=== PATIENT | male | born 1960 | race Caucasian/White ===

== ENCOUNTER 2019-08-23 08:02 | Emergency (ER) | payer OTHER ==
[~2019-08-23] VITALS: Ht 182.9 cm; Wt 118.2 kg
--- NOTE | 2019-08-23 08:20 | ED Lower Extremity ---
General Chief Complaint: Lower Extremity Stated Complaint: RT LEG PAIN Source: patient, family Exam Limitations: no limitations History of Present Illness Date Seen by Provider: Aug 23, 2019 Time Seen by Provider: 08:15 Initial Comments Patient came into the emergency room with complaint of having pain in the right thigh. Since her last Friday he slipped in the ice and fell and landed on his right side. Patient said he thought he might have pulled a muscle on the rt thigh and it was swollen next day and was seen in the local clinic and was advised to keep the leg elevated and Jose wrap to the thigh and ice. Patient has been taking Tylenol for pain and he said since last night his pain got worse and was not able to tolerate the pain so he came to the emergency room. On exam patient's right thigh is swollen significantly along with ecchymosis and tightness of the anterior thigh compartment. Patient also has ecchymosis and hematoma on the posterior compartment. He denies having any tingling or numbness. He does have good pedal pulse. Patient said he was able to walk after the fall until yesterday when his pain got severe and has been using crutches. He does have artificial valve and he was on Coumadin. Onset: last week Severity: moderate Pain/Injury Location: right thigh Method of Injury: fell, twisted Modifying Factors: Improves With Pain Medication Allergies and Home Medications Allergies Coded Allergies: Sulfa (Sulfonamide Antibiotics) (Verified Allergy, Unknown, 08/23/19) penicillin G (Verified Allergy, Unknown, 08/23/19) Review of Systems Constitutional: no symptoms reported, see HPI; No fever All Other Systems Reviewed Negative Unless Noted: Yes Past Ircabvt-Jvrcpv-Ihemjq Hx Patient Social History Recent Foreign Travel: No Physical Exam Vital Signs Vital Signs - First Documented 08/23/19 08:05 Temp 36.2 Pulse 94 Resp 18 B/P (MAP) 171/96 (121) Pulse Ox 98 O2 Delivery Room Air Capillary Refill : Height, Weight, BMI Height: '" Weight: lbs. oz. kg; BMI Method: General Appearance: moderate distress HEENT: normal ENT inspection Neck: non-tender, supple Cardiovascular: normal peripheral pulses, regular rate, rhythm Respiratory: chest non-tender, lungs clear, normal breath sounds, no respiratory distress Gastrointestinal: normal bowel sounds, non tender, soft, no organomegaly, no pulsatile mass Back: normal inspection Hips: right hip ecchymosis, right hip pain, right hip soft tissue tenderness, right hip swelling Legs: right leg soft tissue tenderness, right leg swelling Knees: right knee pain, right knee swelling Ankles: right ankle swelling Feet: right foot swelling Neurologic/Tendon: normal sensation Neurologic/Psychiatric: 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 Pressure was reading 36. Progress/Results/Core Measures Results/Orders Lab Results Laboratory Tests Test 08/23/19 08:20 Range/Units White Blood Count 14.2 H 4.3-11.0 10^3/uL Red Blood Count 3.97 L 4.35-5.85 10^6/uL Hemoglobin 12.6 L 13.3-17.7 G/DL Hematocrit 36 L 40-54 % Mean Corpuscular Volume 91 80-99 FL Mean Corpuscular Hemoglobin 32 25-34 PG Mean Corpuscular Hemoglobin Concent 35 32-36 G/DL Red Cell Distribution Width 13.2 10.0-14.5 % Platelet Count 291 130-400 10^3/uL Mean Platelet Volume 9.8 7.4-10.4 FL Neutrophils (%) (Auto) 65 42-75 % Lymphocytes (%) (Auto) 24 12-44 % Monocytes (%) (Auto) 8 0-12 % Eosinophils (%) (Auto) 1 0-10 % Basophils (%) (Auto) 1 0-10 % Neutrophils # (Auto) 9.2 H 1.8-7.8 X 10^3 Lymphocytes # (Auto) 3.4 1.0-4.0 X 10^3 Monocytes # (Auto) 1.2 H 0.0-1.0 X 10^3 Eosinophils # (Auto) 0.2 0.0-0.3 10^3/uL Basophils # (Auto) 0.1 0.0-0.1 10^3/uL Neutrophils % (Manual) 60 % Lymphocytes % (Manual) 25 % Monocytes % (Manual) 8 % Eosinophils % (Manual) 2 % Basophils % (Manual) 0 % Band Neutrophils 5 % Blood Morphology Comment NORMAL Prothrombin Time 28.5 H 12.2-14.7 SEC INR Comment 2.5 H 0.8-1.4 Sodium Level 140 135-145 MMOL/L Potassium Level 4.3 3.6-5.0 MMOL/L Chloride Level 105 98-107 MMOL/L Carbon Dioxide Level 19 L 21-32 MMOL/L Anion Gap 16 H 5-14 MMOL/L Blood Urea Nitrogen 10 7-18 MG/DL Creatinine 0.93 0.60-1.30 MG/DL Estimat Glomerular Filtration Rate > 60 BUN/Creatinine Ratio 11 Glucose Level 136 H 70-105 MG/DL Calcium Level 8.8 8.5-10.1 MG/DL My Orders Orders - SHYAM BEE MD Cbc With Automated Diff (08/23/19 08:20) Basic Metabolic Panel (08/23/19 08:20) Protime With Inr (08/23/19 08:20) Fentanyl Injection (Sublimaze Injection (08/23/19 08:30) Orphenadrine Injection (Norflex Injectio (08/23/19 08:30) Femur 2 View Right (08/23/19 08:23) Creatine Kinase (08/23/19 08:20) Manual Differential (08/23/19 08:20) Lidocaine 1% Inj 20 Ml (Xylocaine 1% Inj (08/23/19 09:25) Hydromorphone Injection (Dilaudid Inject (08/23/19 09:26) Hydromorphone Injection (Dilaudid Inject (08/23/19 09:45) Lidocaine 1% Inj 20 Ml (Xylocaine 1% Inj (08/23/19 09:45) Medications Given in ED Current Medications Medications Dose Ordered Sig/Re Route Start Time Stop Time Status Last Admin Dose Admin Fentanyl Citrate 50 mcg ONCE ONCE IVP 08/23/19 08:30 08/23/19 08:31 DC 08/23/19 08:28 50 MCG Hydromorphone HCl 1 mg ONCE ONCE IV 08/23/19 09:45 08/23/19 09:46 DC 08/23/19 09:30 1 MG Lidocaine HCl 20 ml ONCE ONCE INJ 08/23/19 09:45 08/23/19 09:46 DC 08/23/19 09:30 20 ML Orphenadrine Citrate 60 mg ONCE ONCE IVP 08/23/19 08:30 08/23/19 08:31 DC 08/23/19 08:28 60 MG Vital Signs/I&O 08/23/19 08:05 Temp 36.2 Pulse 94 Resp 18 B/P (MAP) 171/96 (121) Pulse Ox 98 O2 Delivery Room Air Progress Progress Note : Time: 09:01 Progress Note Patient's pain is slightly better. Patient exam is consistent with a possible compartment syndrome. We'll get the patient transferred to [facility] to see the orthopedic doctor. Consults #1: Consulting Physician: DANIEL VAUGHN MD Consults Notes Adviced to send to . needs higher level of care. Consults #2: Consulting Physician: Lazaro Consults Notes Called [facility] at 0945 am. awaiting call back.spoke with hot plate press operator. received call from Kostas at transfer center- will accept the patient and accepting physician is . will transfer him to ER and he will see him there. Departure Impression Primary Impression: compartment syndrome of rt thigh Disposition: XFER SHT-TRM HOSP Condition: Stable Transfer Transfer Reason: Exceeds level of care Time Spoke to Accepting Phy: 10:30 Transfer Progress Notes Transfer Time: 10:36 Method of Transfer: EMS Departure-Patient Inst. Decision time for Depature: 10:37 Referrals: CAREN FOX MD (PCP/Family) Primary Care Physician SHYAM BEE MD Aug 23, 2019 08:20
[2019-08-23] MEDS ORDERED: ORPHENADRINE 60 MG/2 ML (NORFLEX) AMP IVP ONE (08:30)
[2019-08-23] MEDS ORDERED: fentaNYL INJECTION 100 MCG/2 ML AMP IVP ONE (08:30)
--- NOTE | 2019-08-23 08:50 | Diagnostic Imaging Report ---
INDICATION: Pain, fall. COMPARISON: None available. TECHNIQUE: 4 radiographs of the right femur dated 08/23/2019. FINDINGS: No acute fracture or dislocation. No destructive osseous process. The right hip joint space is well-maintained. Right femoral head is normal in shape and contour. Mild prepatellar soft tissue swelling. No suspicious radiopaque foreign body. IMPRESSION: No acute osseous abnormality with mild prepatellar soft tissue swelling. Dictated by: Dictated on workstation # [id number]
[2019-08-23 08:55] LABS: INR 2.5 (0.8-1.4); PROTHROMBIN TIME PATIENT 28.5 SEC (12.2-14.7)
[2019-08-23 08:56] LABS: BASOPHILS # (AUTO) 0.1 10^3/uL (0.0-0.1); BASOPHILS % (AUTO) 1 % (0-10); EOSINOPHILS # (AUTO) 0.2 10^3/uL (0.0-0.3); EOSINOPHILS % (AUTO) 1 % (0-10); HEMATOCRIT 36 % (40-54); HEMOGLOBIN 12.6 G/DL (13.3-17.7); LYMPHOCYTES # (AUTO) 3.4 X 10^3 (1.0-4.0); LYMPHOCYTES % (AUTO) 24 % (12-44); MEAN CORPUSCULAR HEMOGLOBIN 32 PG (25-34); MEAN CORPUSCULAR HGB CONC 35 G/DL (32-36); MEAN CORPUSCULAR VOLUME 91 FL (80-99); MEAN PLATELET VOLUME 9.8 FL (7.4-10.4); MONOCYTES # (AUTO) 1.2 X 10^3 (0.0-1.0); MONOCYTES % (AUTO) 8 % (0-12); NEUTROPHILS # (AUTO) 9.2 X 10^3 (1.8-7.8); NEUTROPHILS % (AUTO) 65 % (42-75); PLATELET COUNT 291 10^3/uL (130-400); RED CELL DISTRIBUTION WIDTH 13.2 % (10.0-14.5); WHITE BLOOD COUNT 14.2 10^3/uL (4.3-11.0)
[2019-08-23 08:57] LABS: BAND NEUTROPHILS 5 %; BASOPHILS % (MANUAL) 0 %; EOSINOPHILS % (MANUAL) 2 %; LYMPHOCYTES % (MANUAL) 25 %; MONOCYTES % (MANUAL) 8 %; NEUTROPHILS % (MANUAL) 60 %; RBC MORPH NORMAL
[2019-08-23 08:58] LABS: BUN/CREATININE RATIO 11; CALCIUM 8.8 MG/DL (8.5-10.1); CARBON DIOXIDE 19 MMOL/L (21-32); CHLORIDE 105 MMOL/L (98-107); CREATININE SERUM 0.93 MG/DL (0.60-1.30); GFR ESTIMATED > 60; GLUCOSE 136 MG/DL (70-105); POTASSIUM 4.3 MMOL/L (3.6-5.0); SODIUM 140 MMOL/L (135-145)
[2019-08-23] MEDS ORDERED: LIDOCAINE 1% INJ 20 ML 20 ML VIAL ONE (09:25)
[2019-08-23] MEDS ORDERED: HYDROmorphone 2 MG/ML VIAL (DILAUDID) ONE (09:26)
[2019-08-23] MEDS ORDERED: LIDOCAINE 1% INJ 20 ML 20 ML VIAL INJ ONE (09:45)
[2019-08-23] MEDS ORDERED: HYDROmorphone 2 MG/ML VIAL (DILAUDID) IV ONE ×2 (09:45→10:45)
[2019-08-23 11:00] VITALS: BP 153/82
== END 2019-08-23 10:51 | disposition short-term general hospital (02) ==
LOC: ER FS 08:05
DX: T79.A21A Traumatic compartment syndrome of right lower extremity, initial encounter (principal); Z88.2 Allergy status to sulfonamides; Z88.0 Allergy status to penicillin; W00.9XXA Unspecified fall due to ice and snow, initial encounter
CPT/HCPCS: 36415; 73552; 80048; 82550; 85007; 85027; 85610; 96374; 96375; 96376

== ENCOUNTER → 2020-11-17 | Outpatient (CLI) | payer OTHER | LOC: LAB FS 12:28 | PROVIDERS: ATTEND Internal Medicine Gastroenterology | DX: Z01.812 Encounter for preprocedural laboratory examination (principal); Z20.822 Contact with and (suspected) exposure to COVID-19 | CPT/HCPCS: 87635 ==

== ENCOUNTER → 2021-06-28 | Outpatient (CLI) | payer OTHER ==
[~2021-06-28] VITALS: Ht 72 cm; Wt 113.6 kg
[~2021-06-28] MED LIST: BUPIVACAINE 0.25% 30 ML (SENSORCAINE) VIAL INJ ONE; IOHEXOL 300 MG/ML 50 ML (OMNIPAQUE 300) VIAL IV ONE; methylPREDNISolone 40 MG/ML (DEPO MEDROL) VIAL IA ONE
--- NOTE | 2021-06-29 10:47 | Diagnostic Imaging Report ---
EXAMINATION: Left hip injection INDICATION: Hip pain COMPARISON: There are no prior studies available for comparison. Following aseptic preparation of the skin and administration of local anesthesia, a 20-gauge needle was advanced into the hip joint using fluoroscopic guidance. A small amount of Omnipaque 300 was infused into the joint space to assure that the tip was intra-articular. Subsequently, a 3 mL amount of Vagicaine and 2 cc of Depo-Medrol were injected. The patient tolerated the procedure well and was dismissed in good condition. 63.2 seconds of fluoroscopy time was utilized. IMPRESSION: There has been a successful injection of the left hip. Dictated by: Dictated on workstation # [id number]
== END ==
LOC: RAD 11:07
PROVIDERS: ATTEND Family Medicine
DX: M25.552 Pain in left hip (principal)
CPT/HCPCS: 20610; 77002

== ENCOUNTER → 2021-12-10 | Outpatient (CLI) | payer OTHER ==
[~2021-12-10] VITALS: Ht 182.9 cm; Wt 118.2 kg
[~2021-12-10] MED LIST changes: +GADOTERATE 0.5 MMOL/ML (CLARISCAN) 15 ML VIAL IV ONE; -methylPREDNISolone 40 MG/ML (DEPO MEDROL) VIAL IA ONE; +methylPREDNISolone 80 MG/ML (DEPO MEDROL) VIAL IJ ONE
--- NOTE | 2021-12-10 13:00 | Diagnostic Imaging Report ---
INDICATION: Left hip pain. Patient presents for left hip steroid injection using fluoroscopy. Patient brought to the procedure room placed on the table supine position. Skin of left hip was prepped and draped in usual sterile fashion. Small amount of 1% lidocaine was utilized for local anesthesia. 20-gauge needle was advanced place with its tip at the femoral head neck junction laterally. 80 mg of Depo-Medrol and 3 mL of 0.25% bupivacaine was injected. 16 seconds of fluoroscopic time was utilized. Needle was removed and hemostasis was obtained using manual compression. Patient tolerated procedure well and left the department in stable condition. IMPRESSION: Successful left hip injection of steroid and bupivacaine solution, using fluoroscopic guidance. Dictated by: Dictated on workstation # [id number]
== END ==
LOC: RAD 09:00
PROVIDERS: ATTEND Family Medicine
DX: M25.552 Pain in left hip (principal)
CPT/HCPCS: 20610; 77002

== ENCOUNTER 2023-03-26 09:02 | Emergency (ER) | payer OTHER ==
[2023-03-26] MEDS ORDERED: ASPIRIN 81 MG CHEWABLE TABLET PO ONE (09:15)
[2023-03-26] MEDS ORDERED: ANTACID SUSP 30 ML UDC (MYLANTA) PO ONE (09:15)
[2023-03-26] MEDS ORDERED: NITROGLYCERIN 2% OINT 1 GM UNIT DOSE PACKET TOP ONE (09:15)
[2023-03-26] MEDS ORDERED: FAMOTIDINE 20 MG (PEPCID) TABLET PO STA (09:15)
[2023-03-26] MEDS ORDERED: LIDOCAINE 2% VISCOUS 15 ML UDC PO ONE (09:15)
--- NOTE | 2023-03-26 09:18 | ED Chest Pain ---
General Chief Complaint: Chest Pain Stated Complaint: CHEST PAIN Source: patient Exam Limitations: no limitations History of Present Illness Date Seen by Provider: Mar 26, 2023 Time Seen by Provider: 09:05 Initial Comments 62-year-old male with past medical history of bicuspid aortic valve now with replacement on warfarin and hyperlipidemia coming in due to chest pain. Its been going on and off for the past 3 days. He is very active, lifts weights multiple times a week and has for years, and he walks several miles a day as well. He would not really describe it as pain, more like just a pressure. No shortness of breath associated with it. No lower extremity swelling or pain, has not missed any doses of his warfarin. Denies any prior history of CAD or stenting. Has been very mild pressure all morning even when not walking, but would not really describe it as pain. Last took a walk last evening. Otherwise denying any other acute complaints. He does not smoke. Allergies and Home Medications Allergies Coded Allergies: Sulfa (Sulfonamide Antibiotics) (Verified Allergy, Unknown, 08/23/19) penicillin G (Verified Allergy, Unknown, 08/23/19) Patient Home Medication List Home Medication List Reviewed: Yes Review of Systems Review of Systems Constitutional: No fever EENTM: No Symptoms Reported Respiratory: No Symptoms Reported Cardiovascular: See HPI Gastrointestinal: No Symptoms Reported Genitourinary: No Symptoms Reported Musculoskeletal: no symptoms reported Skin: no symptoms reported Psychiatric/Neurological: No Symptoms Reported Endocrine: No Symptoms Reported Hematologic/Lymphatic: No Symptoms Reported Past Pakldfj-Ipdegk-Wltvhm Hx Patient Social History Tobacco Use?: No Seasonal Allergies Seasonal Allergies: No Past Medical History Surgeries: Yes Orthopedic, Valve Replacement Respiratory: No Cardiac: Yes High Cholesterol, Valvular Heart Disease Neurological: No Genitourinary: No Gastrointestinal: No Musculoskeletal: No Endocrine: No HEENT: No Cancer: No Psychosocial: No Integumentary: No Physical Exam Vital Signs Vital Signs - First Documented 03/26/23 09:03 Temp 36.5 Pulse 65 Resp 16 B/P (MAP) 150/77 (101) Pulse Ox 98 O2 Delivery Room Air Capillary Refill : Height, Weight, BMI Height: '" Weight: lbs. oz. kg; 35.33 BMI Method: General Appearance: No Apparent Distress, WD/WN HEENT: PERRL/EOMI, Normal ENT Inspection, Pharynx Normal Neck: Full Range of Motion, Normal Inspection, Non Tender, Supple Respiratory: Chest Non Tender, Lungs Clear, Normal Breath Sounds, No Accessory Muscle Use, No Respiratory Distress Cardiovascular: Regular Rate, Rhythm, No Edema, Normal Peripheral Pulses Gastrointestinal: Normal Bowel Sounds, Non Tender, Soft; No Distended, No Guard ing Extremity: Normal Capillary Refill, Normal Inspection, Normal Range of Motion, Non Tender, No Calf Tenderness, No Pedal Edema Neurologic/Psychiatric: Alert, No Motor/Sensory Deficits, Normal Mood/Affect Skin: Normal Color, Warm/Dry Progress/Results/Core Measures Results/Orders Lab Results Laboratory Tests Test 03/26/23 09:10 Range/Units White Blood Count 7.5 4.3-11.0 10^3/uL Red Blood Count 4.28 L 4.30-5.52 10^6/uL Hemoglobin 13.6 13.3-17.7 g/dL Hematocrit 40 40-54 % Mean Corpuscular Volume 92 80-99 fL Mean Corpuscular Hemoglobin 32 25-34 pg Mean Corpuscular Hemoglobin Concent 34 32-36 g/dL Red Cell Distribution Width 12.5 10.0-14.5 % Platelet Count 218 130-400 10^3/uL Mean Platelet Volume 10.1 9.0-12.2 fL Neutrophils (%) (Auto) 32 L 42-75 % Lymphocytes (%) (Auto) 47 H 12-44 % Monocytes (%) (Auto) 11 0-12 % Eosinophils (%) (Auto) 9 0-10 % Basophils (%) (Auto) 1 0-10 % Neutrophils # (Auto) 2.4 1.8-7.8 X 10^3 Lymphocytes # (Auto) 3.5 1.0-4.0 X 10^3 Monocytes # (Auto) 0.8 0.0-1.0 X 10^3 Eosinophils # (Auto) 0.7 H 0.0-0.3 10^3/uL Basophils # (Auto) 0.1 0.0-0.1 10^3/uL Prothrombin Time 28.0 H 12.2-14.7 SEC INR Comment 2.6 H 0.8-1.4 Activated Partial Thromboplast Time 41 H 24-35 SEC Sodium Level 141 135-145 MMOL/L Potassium Level 4.4 3.6-5.0 MMOL/L Chloride Level 105 98-107 MMOL/L Carbon Dioxide Level 25 21-32 MMOL/L Anion Gap 11 5-14 MMOL/L Blood Urea Nitrogen 18 7-18 MG/DL Creatinine 0.84 0.60-1.30 MG/DL Estimat Glomerular Filtration Rate 98 BUN/Creatinine Ratio 21 Glucose Level 96 70-105 MG/DL Calcium Level 9.4 8.5-10.1 MG/DL Corrected Calcium 9.1 8.5-10.1 MG/DL Magnesium Level 2.2 1.6-2.4 MG/DL Total Bilirubin 1.1 H 0.1-1.0 MG/DL Aspartate Amino Transf (AST/SGOT) 25 5-34 U/L Alanine Aminotransferase (ALT/SGPT) 28 0-55 U/L Alkaline Phosphatase 53 40-136 U/L Troponin I < 0.30 <0.30 NG/ML Pro-B-Type Natriuretic Peptide 109.9 <125.0 PG/ML Total Protein 6.6 6.4-8.2 GM/DL Albumin 4.4 3.2-4.5 GM/DL Lipase 31 8-78 U/L My Orders Orders - STACY MCELROY MD Cbc With Automated Diff (03/26/23 09:15) Magnesium (03/26/23 09:15) Chest 1 View Ap/Pa Only (03/26/23 09:15) Ekg Tracing (03/26/23 09:15) Comprehensive Metabolic Panel (03/26/23 09:15) Protime With Inr (03/26/23 09:15) Partial Thromboplastin Time (03/26/23 09:15) O2 (03/26/23 09:15) Monitor-Rhythm Ecg Trace Only (03/26/23 09:15) Aspirin Chewable Tablet (Baby Aspirin Ch (03/26/23 09:15) Ed Iv/Invasive Line Start (03/26/23 09:15) Lipase (03/26/23 09:15) Troponin I Fs (03/26/23 09:15) Probnp Fs (03/26/23 09:15) Lidocaine 2% Viscous 15 Ml (Xylocaine Vi (03/26/23 09:15) Famotidine Tablet (Pepcid Tablet) (03/26/23 09:15) Antacid Suspension (Mylanta Suspension (03/26/23 09:15) Nitroglycerin Ointment (Nitrobid Ointme (03/26/23 09:15) Ondansetron Injection (Zofran Injectio (03/26/23 09:45) Ondansetron Injection (Zofran Injectio (03/26/23 09:35) Medications Given in ED Current Medications Medications Dose Ordered Sig/Re Route Start Time Stop Time Status Last Admin Dose Admin Al Hydrox/Mg Hydrox/Simethicone 30 ml ONCE ONCE PO 03/26/23 09:15 03/26/23 09:16 DC 03/26/23 09:24 30 ML Aspirin 324 mg ONCE ONCE PO 03/26/23 09:15 03/26/23 09:16 DC 03/26/23 09:23 324 MG Lidocaine HCl 15 ml ONCE ONCE PO 03/26/23 09:15 03/26/23 09:16 DC 03/26/23 09:24 15 ML Nitroglycerin 1 inch ONCE ONCE TOP 03/26/23 09:15 03/26/23 09:16 DC 03/26/23 09:24 1 INCH Ondansetron HCl 4 mg ONCE ONCE IVP 03/26/23 09:45 03/26/23 09:46 DC 03/26/23 09:36 4 MG Vital Signs/I&O 03/26/23 09:03 Temp 36.5 Pulse 65 Resp 16 B/P (MAP) 150/77 (101) Pulse Ox 98 O2 Delivery Room Air Progress Progress Note : Progress Note 62-year-old male presenting for chest pressure with exertion. ABCs were intact and vitals were stable on presentation. It seems that he gets quite a bit of exertion before the chest pressure occurs, he is walking many miles a day up hills. It is difficult to ascertain if this is really due to a cardiac issue. He is having mild chest tightness on arrival here and has been for many hours. EKG ordered and interpreted by me showing no acute ischemic changes. An IV was placed and basic labs were obtained and were significant for negative troponin making ACS much less likely, INR 2.6 which is therapeutic and also making a PE very unlikely, and normal creatinine.. Chest x-ray ordered and interpreted by me showing no pneumothorax, normal cardiac silhouette. He was given a GI cocktail which tastes unfortunately made him start vomiting. Zofran helped with that issue. On reassessment, he is pain-free, well-appearing, and I believe he is appropriate for discharge with outpatient rapid follow-up with cardiology for potential stress test. I have counseled him to stop exerting himself if it is causing discomfort and rest until he goes away, and of course come back to the ER if things worsen. Initial ECG Impression Date: Mar 26, 2023 Initial ECG Impression Time: 09:07 Initial ECG Rate: 62 Initial ECG Rhythm: Normal Sinus Comment Narrow QRS, normal axis, no significant ST changes or T wave abnormality Diagnostic Imaging Diagonstic Imaging: Xray (chest) Comments [facility] [place], [place] NAME: [facility] REC#: [id number] PT STATUS: REG ER : 1960 PHYSICIAN: STACY MCELROY MD ADMIT DATE: 03/26/23/ER FS Draft Date of Exam:03/26/23 CHEST 1 VIEW AP/PA ONLY INDICATION: Chest pain FINDINGS: The lungs are clear. No failure, effusion or pneumothorax. IMPRESSION: No acute appearing abnormality. Dictated on workstation # [id number] Dict: 03/26/23 0932 Trans: 03/26/23 0941 [facility] [id number] Interpreted by: VANDANA VINES Electronically signed by: Departure Impression Primary Impression: Chest tightness Additional Impression: H/O aortic valve replacement Disposition: 01 HOME, SELF-CARE Condition: Stable Departure-Patient Inst. Decision time for Depature: 10:15 Referrals: CAREN FOX MD (PCP/Family) Primary Care Physician Patient Instructions: Chest Pain, Adult ED Add. Discharge Instructions: Please stop any exercise if you start having discomfort until you are feeling better. Please follow-up with your reconciliation analyst as soon as possible to discuss potentially having a stress test or what ever they deem it necessary. Your INR was 2.6 today, your troponin was negative, and your labs are otherwise unremarkable. Your EKG was also reassuring. Work/School Note: Work Release Form Date Seen in the Emergency Department: Mar 26, 2023 Return to Work: Mar 27, 2023 Restrictions: No Restrictions STACY MCELROY MD Mar 26, 2023 09:18
[2023-03-26 09:31] LABS: HEMATOCRIT 40 % (40-54); HEMOGLOBIN 13.6 g/dL (13.3-17.7); MEAN CORPUSCULAR HEMOGLOBIN 32 pg (25-34); MEAN CORPUSCULAR HGB CONC 34 g/dL (32-36); MEAN CORPUSCULAR VOLUME 92 fL (80-99); WHITE BLOOD COUNT 7.5 10^3/uL (4.3-11.0)
[2023-03-26 09:32] LABS: BASOPHILS # (AUTO) 0.1 10^3/uL (0.0-0.1); BASOPHILS % (AUTO) 1 % (0-10); EOSINOPHILS # (AUTO) 0.7 10^3/uL (0.0-0.3); EOSINOPHILS % (AUTO) 9 % (0-10); LYMPHOCYTES # (AUTO) 3.5 X 10^3 (1.0-4.0); LYMPHOCYTES % (AUTO) 47 % (12-44); MEAN PLATELET VOLUME 10.1 fL (9.0-12.2); MONOCYTES # (AUTO) 0.8 X 10^3 (0.0-1.0); MONOCYTES % (AUTO) 11 % (0-12); NEUTROPHILS # (AUTO) 2.4 X 10^3 (1.8-7.8); NEUTROPHILS % (AUTO) 32 % (42-75); PLATELET COUNT 218 10^3/uL (130-400)
[2023-03-26] MEDS ORDERED: ONDANSETRON 4 MG/2 ML (SDV) Z0FRAN ONE (09:35)
--- NOTE | 2023-03-26 09:42 | Diagnostic Imaging Report ---
INDICATION: Chest pain FINDINGS: The lungs are clear. No failure, effusion or pneumothorax. IMPRESSION: No acute appearing abnormality. Dictated by: Dictated on workstation # [id number]
[2023-03-26] MEDS ORDERED: ONDANSETRON 4 MG/2 ML (SDV) Z0FRAN IVP ONE (09:45)
[2023-03-26 09:46] LABS: INR 2.6 (0.8-1.4)
[2023-03-26 10:03] LABS: ALANINE AMINOTRANSFERASE 28 U/L (0-55); ALKALINE PHOSPHATASE 53 U/L (40-136); BILIRUBIN,TOTAL 1.1 MG/DL (0.1-1.0); BUN/CREATININE RATIO 21; CALCIUM 9.4 MG/DL (8.5-10.1); CARBON DIOXIDE 25 MMOL/L (21-32); CHLORIDE 105 MMOL/L (98-107); CREATININE SERUM 0.84 MG/DL (0.60-1.30); GFR ESTIMATED 98; GLUCOSE 96 MG/DL (70-105); MAGNESIUM 2.2 MG/DL (1.6-2.4); POTASSIUM 4.4 MMOL/L (3.6-5.0); SODIUM 141 MMOL/L (135-145)
[2023-03-26 10:04] LABS: ALBUMIN 4.4 GM/DL (3.2-4.5); LIPASE 31 U/L (8-78); TOTAL PROTEIN 6.6 GM/DL (6.4-8.2)
[2023-03-26 10:14] VITALS: BP 130/85
== END 2023-03-26 10:15 | disposition home or self-care (01) ==
LOC: EDUNIT# 09:02 → ER FS 09:03
DX: R05.9 Cough, unspecified (principal)
CPT/HCPCS: 36415; 71045; 80053; 83690; 83735; 83880; 84484; 85025; 85610; 85730; 93005; 93041

== ENCOUNTER 2023-07-21 11:57 | Outpatient (RCR) | payer OTHER | END 2023-07-31 | disposition home or self-care (01) | LOC: CR 11:57 | PROVIDERS: ATTEND Internal Medicine Interventional Cardiology | DX: Z29.89 Encounter for other specified prophylactic measures (principal); Z95.5 Presence of coronary angioplasty implant and graft | CPT/HCPCS: 93798 ==